=== PATIENT | female | born 1960 | race Caucasian/White ===

== ENCOUNTER 2018-04-27 20:06 | Emergency (ER) | payer SELFPAY ==
[2018-04-27 20:16] VITALS: BP 115/69
--- NOTE | 2018-04-27 20:26 | EDPHY ---
H & P Stated Complaint: etoh found sleeping in bushes by rastafarian, no warming fpc - Personal History Current Tetanus/Diphtheria Vaccine: Unsure Current Tetanus Diphtheria and Acellular Pertussis (TDAP): Unsure - Medical/Surgical History Hx Asthma: No Hx Chronic Respiratory Disease: No Hx Diabetes: No Hx Cardiac Disease: No Hx Renal Disease: No Hx Cirrhosis: No Hx Alcoholism: No Hx HIV/AIDS: No Hx Splenectomy or Spleen Trauma: No Other PMH: hist, anxiety , anemia - Social History Smoking Status: Never smoked Time Seen by Provider: 04/27/18 20:17 HPI/ROS: CHIEF COMPLAINT: Suspected alcohol abuse HISTORY OF PRESENT ILLNESS: 57 year old female arrives via ambulance for suspected alcohol abuse after she was found sleeping outside of a rast[employer]arian.. Patient unable to ambulate without assistance. No reports of trauma or assault. No fall from height. No structures of height near patient. No complaints of pain or discomfort. She does not know where to go. The warming fpc is not open due to current weather. Denies hallucination. Denies suicidal or homicidal ideation. Denies seizure. REVIEW OF SYSTEMS: 10 systems reviewed and negative with the exception of the elements mentioned in the history of present illness PAST MEDICAL/SURGICAL HISTORY: no anticoagulant use, no relevant medical/ surgical history SOCIAL HISTORY: Positive for witnessed and self disclosed alcohol use PHYSICAL EXAM 1) GENERAL: Well-developed, well-nourished, alert and oriented. Appears to be in no acute distress. Answering questions appropriately.Smells of alcohol. 2) HEAD: Normocephalic, atraumatic 3) HEENT: Pupils equal, round, reactive to light bilaterally. Negative Horners. Nasopharynx, oropharynx, clear. No deformity or angulation of nose. No septal hematoma. No rhinorrhea. No oral trauma. Ears bilaterally with normal tympanic membranes. No hemotympanum. No fluid or blood in the external auditory canal. No raccoon eyes. No Kline sign. Subacute right chin ecchymosis. No underlying osseous discomfort. Teeth are normally aligned with no gross malocclusion, TMJ bilaterally nontender, facial bones nontender including the zygomatic arch, maxilla mandible. 4) NECK: No cervical collar is on. Posterior cervical spine is nontender, no stepoff, no effusion. Full range of motion which does not elicit any midline cervical spine pain, no posterior midline tenderness, no step-off. 5) LUNGS: Clear to auscultation bilaterally, no wheezes, no rhonchi, no retractions. No obvious signs of trauma. No chest wall pain. No flaring, no grunting. Moving symmetrically. No crepitus. 6) HEART: [Regular rate and rhythm, 7) ABDOMEN: No guarding, no rebound, no focal tenderness, no peritoneal signs, no signs of trauma, no ecchymosis 8) MUSCULOSKELETAL: Moving all extremities, no focal areas of tenderness, no obvious trauma. 9) BACK: No midline vertebral tenderness, no fluctuance, no step-off, no obvious trauma, no visual or palpable abnormality. 10) SKIN: No laceration. No abrasion DIFFERENTIAL DIAGNOSIS: In no particular orderincluding but not limited to hypoglycemia, infectious process, electrolyte abnormality, head injury and intoxicants. (Qian Gutiérrez) Constitutional: Initial Vital Signs Temperature (C) 36.7 C 04/27/18 20:10 Heart Rate 82 04/27/18 20:10 Respiratory Rate 18 04/27/18 20:10 Blood Pressure 115/69 04/27/18 20:10 O2 Sat (%) 94 04/27/18 20:10 O2 Delivery Mode Room Air Allergies/Adverse Reactions: pain pills Allergy (Uncoded 04/27/18 20:16) Home Medications: Medication Instructions Recorded ALPRAZolam [Xanax 1 MG (*)] 1 mg PO BID 04/27/18 Medical Decision Making ED Course/Re-evaluation: 8:23 p.m.: Patient appears well, answering questions appropriately. [facility] I do not identify indication for imaging at this time. Plan will be discharge to the [facility]. doubt delirium tremens. Patient denies suicidal or homicidal ideation. ( Qian Gutiérrez) Other Provider: The patient was evaluated and managed by the Physician Supervisor [employer]. My co- signature indicates that I have reviewed this chart and I agree with the findings and plan of care as documented. I am the secondary supervising physician. (Chelsi Delacruz) - Data Points Medications Given: Discontinued Medications Chlordiazepoxide (Librium 25 Mg Prepack#6) 1 btl TAKEHOME EDNOW ONE Stop: 04/27/18 20:32 Last Admin: 04/27/18 21:11 Dose: 1 btl Departure - Departure Disposition: Home, Routine, Self-Care Clinical Impression: Alcohol abuse Condition: Good Instructions: Chlordiazepoxide (By mouth), Abuse of Alcohol (ED) Referrals: [facility] [Outside] - As per Instructions
[2018-04-27] MEDS ORDERED: CHLORDIAZEPOXIDE 25MG PREPK#6 BTL TAKEHOME ONE (20:31)
== END 2018-04-27 21:08 | disposition home or self-care (01) ==
DX: F10.10 Alcohol abuse, uncomplicated (principal)